=== PATIENT | male | born 1960 | race Caucasian/White ===

== ENCOUNTER 2016-11-11 16:40 | Emergency (ER) | payer OTHER ==
[2016-11-11] MEDS ORDERED: OPTIRAY 350 100 ML VIAL HMH IV ONE (17:18)
== END 2016-11-11 19:18 | disposition home or self-care (01) ==
LOC: ER 17:17
DX: S20.212A Contusion of left front wall of thorax, initial encounter (principal); S40.012A Contusion of left shoulder, initial encounter; V80.010A Animal-rider injured by fall from or being thrown from horse in noncollision accident, initial encounter; Y93.52 Activity, horseback riding; Y92.89 Other specified places as the place of occurrence of the external cause
CPT/HCPCS: 36415; 71020; 71260; 80047; 85014